=== PATIENT | male | born 1995 | race American Indian/Alaskan Native ===

== ENCOUNTER 2018-07-07 20:13 | Emergency (ER) | payer SELFPAY ==
[2018-07-07 20:30] VITALS: BP 112/58
[2018-07-07 20:58] LABS: Bilirubin,Urine NEG (Negative); Blood,Urine NEG (Negative); Color,Urine Yellow (Yellow); Mucus,Urine FEW /HPF; Protein,Urine <15 mg/dL mg/dL (Negative); Urobilinogen,Urine < 2.0 mg/dL (<2.0)
[2018-07-07] MEDS ORDERED: ZITHROMAX PO ONE (22:16)
[2018-07-07] MEDS ORDERED: ROCEPHIN IM ONE (22:16)
[2018-07-07] MEDS ORDERED: XYLOCAINE 1% MPF 5 mL INFILTRATI ONE (22:16)
--- NOTE | 2018-07-07 23:44 | Emergency Department Report ---
ED Male HPI - General Chief complaint: Urogenital-Male Stated complaint: BURNING URINATION Time Seen by Provider: 07/07/18 22:07 Source: patient Mode of arrival: Ambulatory Limitations: No Limitations - History of Present Illness Initial comments: 22-year-old -[place] male comes in reporting as burning on urination that started today. Patient reports 2 weeks ago he had unprotected sex and was told by his girlfriend that she was exposed to gonorrhea and chlamydia. Patient denies any fever chills no nausea no vomiting no abdominal pain. He does admit to dysuria and penile discharge. He denies any testicular pain or testicular swelling. MD Complaint: penile discharge - Related Data Previous Rx's Medication Instructions Recorded Last Taken Type Doxycycline [Vibramycin CAP] 100 mg PO Q12HR #20 capsule 07/07/18 Unknown Rx Allergies Allergy/AdvReac Type Severity Reaction Status Date / Time No Known Allergies Allergy Unverified 07/07/18 20:25 ED Review of Systems ROS: Stated complaint: BURNING URINATION Other details as noted in HPI ED Past Medical Hx - Past Medical History Previous Medical History?: No - Surgical History Past Surgical History?: Yes Hx Appendectomy: Yes Additional Surgical History: Left femur removed. - Social History Smoking Status: Never Smoker Substance Use Type: None - Medications Home Medications: Home Medications Medication Instructions Recorded Confirmed Last Taken Type Doxycycline [Vibramycin CAP] 100 mg PO Q12HR #20 capsule 07/07/18 Unknown Rx ED Physical Exam - General Limitations: No Limitations ED Course Vital Signs 07/07/18 20:25 Temperature 98.3 F Pulse Rate 92 H Respiratory 18 Rate Blood Pressure 112/58 O2 Sat by Pulse 97 Oximetry Critical care attestation.: If time is entered above; I have spent that time in minutes in the direct care of this critically ill patient, excluding procedure time. ED Disposition Clinical Impression: STD (male) Disposition: DC-01 TO HOME OR SELFCARE Is pt being admited?: No Does the pt Need Aspirin: No Condition: Stable Instructions: Sexually Transmitted Diseases (ED), Safe Sex (ED) Additional Instructions: Please complete antibiotics as prescribed. Please follow-up with the health department to obtain HIV testing syphilis testing and hepatitis testing. He can bring her ID to medical records to obtain your results in 5-7 days. Please inform your partners that she had been treated and tested for STDs Prescriptions: Doxycycline [Vibramycin CAP] 100 mg PO Q12HR #20 capsule Referrals: JESUS ROJO MD [Primary Care Provider] - 3-5 Days [facility] [Outside] - 3[facility] [facility]Outside[facility] - [facility] Days
== END 2018-07-08 00:02 | disposition home or self-care (01) ==
LOC: ED 20:13
DX: Z20.2 Contact with and (suspected) exposure to infections with a predominantly sexual mode of transmission (principal); Z90.89 Acquired absence of other organs
CPT/HCPCS: 81001; 87591; 96372; 99283; J0696